=== PATIENT | male | born 2000 | race Caucasian/White ===

== ENCOUNTER 2024-10-23 08:38 | Outpatient (CLI) | payer BC ==
[2024-10-23 09:47] LABS: #Basophils 0.06 10x3/uL (0.0-0.2); %Basophils 0.9 % (0.0-1.0); %Eosinophils 2.8 % (0.0-10.0); %Lymphocytes 39.7 % (21.0-51.0); %Monocytes 7.5 % (0.0-10.0); %Neutrophils 48.9 % (42.0-75.0); Hematocrit 43.4 % (42.0-52.0); Hemoglobin 15.3 g/dL (14.0-18.0); Mean Corpuscular HGB CONC 35.3 g/dL (32.0-36.0); Mean Corpuscular Hemoglobin 29.3 pg (27.0-31.0); Mean Corpuscular Volume 83.1 fL (78.0-98.0); Mean Platelet Volume 10.3 fL (7.4-10.4); Platelet Count 276 10x3/uL (130-400); RBC Distribution Width 12.1 % (11.5-14.5); Red Blood Cell (RBC) Count 5.22 mill/uL (4.70-6.10)
[2024-10-23 10:12] LABS: Anion Gap 11 mmol/L (10-20); BUN (Urea Nitrogen) 12 mg/dL (8.9-20.6); Calc. Creatinine Clearance 0 mL/min (70-130); Calcium 9.5 mg/dL (7.8-10.44); Carbon Dioxide 25 mmol/L (22-29); Chloride 106 mmol/L (98-107); Estimated GFR 119; Glucose 103 mg/dL (70-105); Potassium 4.2 mmol/L (3.5-5.1); Sodium 138 mmol/L (136-145)
== END 2024-10-23 08:39 | disposition home or self-care (01) ==
LOC: LABBT 08:38
PROVIDERS: ATTEND Orthopaedic Surgery
DX: Z01.818 Encounter for other preprocedural examination (principal); S62.322A Displaced fracture of shaft of third metacarpal bone, right hand, initial encounter for closed fracture; S62.356A Nondisplaced fracture of shaft of fifth metacarpal bone, right hand, initial encounter for closed fracture; S62.324A Displaced fracture of shaft of fourth metacarpal bone, right hand, initial encounter for closed fracture; S62.350A Nondisplaced fracture of shaft of second metacarpal bone, right hand, initial encounter for closed fracture
CPT/HCPCS: 80048; 85025; 93005; 93010